=== PATIENT | male | born 1970 | race Caucasian/White ===

== ENCOUNTER → 2017-02-17 | Outpatient (CLI) | payer OTHER ==
[2017-02-17 19:31] LABS: ALB/GLOB RATIO 0.6 (0.9-2); ALKALINE PHOSPHATASE 91 U/L (45-117); ALT/SGPT 26 U/L (12-78); AST/SGOT 21 U/L (15-37); BLOOD UREA NITROGEN 19 mg/dl (7-18); BUN/CREATININE RATIO 18.8 (10-20); CALCIUM 9.5 mg/dl (8.5-10.1); CARBON DIOXIDE 26 mmol/L (21-32); CHLORIDE 98 mmol/L (98-107); CHOLESTEROL 199 mg/dl (0-200); GLUCOSE 352 mg/dl (70-99); HDL CHOLESTEROL 40 mg/dl; LDL CHOLESTEROL CALCULATED 104 mg/dl; POTASSIUM 3.8 mmol/L (3.5-5.1); SODIUM 133 mmol/L (136-145); TRIGLYCERIDES 273 mg/dl (0-150); VERY LOW DENSITY LIPOPROT CALC 55 mg/dl
[2017-02-17 19:42] LABS: BETA-HYDROXYBUTYRATE 1.38 mg/dL (0.2-2.81)
[2017-02-18 07:23] LABS: ESTIMATED AVERAGE GLUCOSE 286 mg/dl; HA1C FLAG Normal (Normal)
== END | disposition home or self-care (01) ==
LOC: C.LABPBG 15:28
PROVIDERS: ATTEND Family Medicine
DX: Z00.00 Encounter for general adult medical examination without abnormal findings (principal); E11.9 Type 2 diabetes mellitus without complications

== ENCOUNTER 2018-07-20 14:09 | Inpatient (IN) ==
[2018-07-20] MEDS ORDERED: SODIUM CHLORIDE 0.9% 1000ML 2,000 ML IV SCH (14:45)
[2018-07-20 14:58] LABS: Basophils # (auto) 0.05 K/uL (0-0.2); Basophils % (auto) 0.6 %; Eosinophils # (auto) 0.36 K/uL (0-0.5); Eosinophils % (auto) 4.5 %; Hematocrit (blood only) 44.4 % (42-52); Hemoglobin 14.3 g/dL (14.0-18.0); Immature Granulocytes # (auto) 0.04 K/uL (0.00-0.02); Immature Granulocytes % (auto) 0.5 %; Lymphocytes # (auto) 1.86 K/uL (1.2-3.4); Lymphocytes % (auto) 23.3 %; Mean Corpuscular Hgb Conc 32.2 g/dL (32-36); Mean Corpuscular Volume 74.5 fL (80-100); Mean Platelet Volume 10.5 fL (7.4-10.4); Monocytes # (auto) 0.59 K/uL (0.11-0.59); Monocytes % (auto) 7.4 %; Neutrophils # (auto) 5.09 K/uL (1.4-6.5); Neutrophils % (auto) 63.7 %; Platelet Count 230 K/uL (130-400); RDW Coefficient of Variation 15.7 % (11.5-14.5); RDW Standard Deviation 42.8 fL (36.4-46.3); Red Blood Count 5.96 M/uL (4.7-6.1); White Blood Count 7.99 K/uL (4.8-10.8)
[2018-07-20 15:17] LABS: Alanine Aminotransferase 25 U/L (12-78); Albumin Level 3.3 gm/dl (3.4-5.0); Aspartate Aminotransferase 35 U/L (15-37); BUN Creatinine Ratio 11.4 (10-20); Blood Urea Nitrogen 13 mg/dl (7-18); Calcium 9.2 mg/dl (8.5-10.1); Carbon Dioxide 27 mmol/L (21-32); Chloride 96 mmol/L (98-107); Est GFR (African American) 84.1; Est GFR (Non-African American) 72.5; Glucose 283 mg/dl (70-99); Potassium 3.6 mmol/L (3.5-5.1); Sodium 131 mmol/L (136-145)
[2018-07-20 15:27] LABS: Albumin Globulin Ratio 0.6 (0.9-2); Alkaline Phosphatase 90 U/L (45-117); Bilirubin,Total 0.5 mg/dl (0.2-1); Globulin 5.7 gm/dl (2.5-4.0); Troponin I < 0.015 ng/ml (0-0.045)
--- NOTE | 2018-07-20 15:39 | XRay Report ---
XR chest 1V portable CLINICAL HISTORY: cough COMPARISON STUDY: No previous studies for comparison. FINDINGS: The heart is borderline enlarged. There is no failure. There is no focal pulmonary consolid ation. There are no pleural effusions.[ IMPRESSION: No active disease in the chest. Electronically signed by: Gee Abudllahi M.D. 07/20/2018 3:38 PM
--- NOTE | 2018-07-20 15:40 | XRay Report ---
RIGHT GREAT TOE 4 VIEWS CLINICAL HISTORY: Nonhealing wound. Diabetic. Evaluate for osteomyelitis. COMPARISON: None. DISCUSSION: Degenerative changes are present the level of the metatarsal phalangeal joint and interph alangeal joint. No acute fractures are visualized. There is no conventional radiographic evidence of acute osteomyelitis. If this remains a strong clinical concern, it should be noted that MRI is more s ensitive for this diagnosis. IMPRESSION: 1. Mild degenerative change 2. No acute fractures 3. No conventional radiographic evidence of osteomyelitis Electronically signed by: Gee Abdullahi M.D. 07/20/2018 3:39 PM
[2018-07-20] MEDS ORDERED: VANCOMYCIN CONSULT ACTIVE PRN ×2 (15:50→17:13)
[2018-07-20] MEDS ORDERED: cefTRIAXone SODIUM 1,000 MG/50 ML BAG IV STA (15:50)
[2018-07-20] MEDS ORDERED: VANCOMYCIN HCL 2,750 MG in SODIUM CHLORIDE 0.9% 500 ML IV ONE (15:50)
--- NOTE | 2018-07-20 16:57 | Emergency Department Note ---
Entered by John Emery acting as a scribe for Van Roman DO History of Present Illness General Chief complaint: Infection, Wound Stated complaint: SENT FOR IV ANTIBIOTI,INFECTION IN BONE OF BIG TOE Source: patient Limitations: no limitations History of Present Illness Provider complaint: Right great toe infection Onset (ago): year(s) Location: foot (Right great toe) Pain Consistency: + other (no change in infection) Maximum Pain Intensity: 5 Quality: + other (Toe infection) Associated symptoms: + cough Treatments prior to arrival: other (Keflex ) The patient is a 48 year old male who presents to the Emergency Room from his primary care office after blood work from yesterday showed infection. The patient states that he has had an infection in the great toe on his right foot for the past 3 years. He saw his PCP yesterday who did blood work and told him that he had an infection "in my blood" today and referred him to the ED. She did start the patient on Keflex, which he took today. The patient denies any worsening/change to the wound and denies any recent fevers. He does add that he has had upper airway congestion and a cough for the past couple of weeks. The patient denies any other nausea, vomiting, diarrhea, or abdominal pain. Home Medications Home Medications Medication Instructions Recorded Confirmed Type canagliflozin [Invokana] 100 mg PO QPM 07/20/18 07/20/18 History fexofenadine-pseudoephedrine 1 tab PO Q12H PRN 07/20/18 07/20/18 History [Janee-D 12 Hour] hydrochlorothiazide 25 mg PO QPM 07/20/18 07/20/18 History losartan 100 mg PO QPM 07/20/18 07/20/18 History metformin 2,000 mg PO QPM 07/20/18 07/20/18 History sertraline 200 mg PO QPM 07/20/18 07/20/18 History sulfamethoxazole-trimethoprim 1 tab PO BID 07/20/18 07/20/18 History trazodone 100 mg PO HS PRN 07/20/18 07/20/18 History Allergies Allergy/AdvReac Type Severity Reaction Status Date / Time No Known Allergies Allergy Unverified 07/20/18 15:13 Past Med/Surg History Medical History HTN (hypertension) Toe infection Social History marital status: Current Living Situation: Spouse Feels Safe at Home: Yes Smoking Status: Never smoker Review of Systems See HPI for pertinent positives & negatives. and A total of 10 systems reviewed and were otherwise negative Physical Exam Vital Signs Vital Signs - 24 hr 07/20/18 14:13 07/20/18 15:13 07/20/18 15:30 Temperature 36.4 C L Temperature Source Oral Sepsis Recent Fever Within 48 Hours No Sepsis New/Unexplained Change in Mental Status No Sepsis Action Taken by Nursing No Action Required Pulse Rate 111 H 105 H Pulse Rate [Apical] 94 H Pulse Rhythm Regular Respiratory Rate 20 17 20 Respiratory Depth Normal Blood Pressure 198/81 H Blood Pressure [Right Arm] 148/96 H Blood Pressure Mean 120 Blood Pressure Mean [Right Arm] 113 Pulse Oximetry 92 94 94 Oxygen Delivery Method Room Air Room Air GENERAL: Sitting up in bed, alert, disheveled and diaphoretic. Chronically ill appearing. EYE EXAM: normal conjunctiva. OROPHARYNX: no exudate, no erythema, lips, buccal mucosa, and tongue normal and mucous membranes are moist NECK: supple, no nuchal rigidity, no adenopathy, non-tender LUNGS: Clear to auscultation. Normal chest wall mechanics HEART: Tachycardic. no murmurs, S1 normal and S2 normal ABDOMEN: abdomen soft, non-tender, normo-active bowel, sounds, no masses, no rebound or guarding. BACK: Back is symmetrical on inspection and there is no deformity, no midline tenderness, no CVA tenderness. SKIN: no rashes and no bruising UPPER EXTREMITIES: upper extremities are grossly normal. LOWER EXTREMITIES: No pitting edema. The right great toe has a 1x1 cm wound on the plantar surface, tracking down to the muscle. NEURO EXAM: Normal sensorium, cranial nerves II-XII grossly intact, normal speech, no gross weakness of arms, no gross weakness of legs. Course ED COURSE: Vital signs were reviewed and showed tachycardia, febrile, and hypertension. The patients medical record was reviewed The above diagnostic studies were performed and reviewed. ED treatments and interventions as stated above. 1433: The patient was evaluated in room B11B. A complete history and physical examination was performed. 1601: Upon reevaluation, the patient is resting in bed. I discussed my findings with the patient and he understands and agrees with the treatment plan. Based on the patients age, coexisting illnesses, exam and lab findings the decision to treat as an inpatient was made. The patient remained stable while under my care. The patient will be evaluated for further management. 1606: I reviewed the patient's case with Dr. Hawk [place] [facility] [place] He will evaluate the patient for further management. Administered Medications Vancomycin HCl 2,750 mg/ (Sodium Chloride) 555 mls @ 200 mls/hr IV NOW ONE Stop: 07/20/18 18:36 Last Admin: 07/20/18 16:18 Dose: 200 mls/hr Discontinued Medications Sodium Chloride (Nss 1000ml) 2,000 mls @ 999 mls/hr IV .Q2H1M ANUM Stop: 07/20/18 16:45 Last Infusion: 07/20/18 16:17 Dose: 0 mls/hr Admin: 07/20/18 15:12 Dose: 999 mls/hr Ceftriaxone Sodium (Rocephin) 1,000 mg in 50 mls @ 100 mls/hr IV NOW STA Stop: 07/20/18 16:19 Last Infusion: 07/20/18 16:18 Dose: 0 mls/hr Admin: 07/20/18 15:58 Dose: 100 mls/hr Medical Decision Making Differential Diagnosis Differential diagnosis: Etiologies such as sepsis, UTI, pneumonia, bacteremia, metabolic process, electrolyte abnormalities, cardiac sources, intracerebral event, intra- abdominal process, toxicological process, neurologic process, as well as others were entertained. Medical Records Attestation: I reviewed the patient's medical records. Home Medications Current Medication List: was personally reviewed by me Laboratory Data Attestation: I reviewed the patient's lab results. Result diagrams: 07/20/18 14:44 07/20/18 14:44 Lab Results 07/20/18 07/20/18 07/20/18 Range/Units 14:44 14:44 14:49 WBC 7.99 (4.8-10.8) K/uL RBC 5.96 (4.7-6.1) M/uL Hgb 14.3 (14.0-18.0) g/dL Hct 44.4 (42-52) % MCV 74.5 L (80-100) fL MCH 24.0 L (25-34) pg MCHC 32.2 (32-36) g/dL RDW Std Deviation 42.8 (36.4-46.3) fL RDW Coeff of Rafal 15.7 H (11.5-14.5) % Plt Count 230 (130-400) K/uL MPV 10.5 H (7.4-10.4) fL Immature Gran % (Auto) 0.5 % Neut % (Auto) 63.7 % Lymph % (Auto) 23.3 % [place] % (Auto) 7.4 % Eos % (Auto) 4.5 % Baso % (Auto) 0.6 % Immature Gran # (Auto) 0.04 H (0.00-0.02) K/uL Neut # (Auto) 5.09 (1.4-6.5) K/uL Lymph # (Auto) 1.86 (1.2-3.4) K/uL [place] # (Auto) 0.59 (0.11-0.59) K/uL Eos # (Auto) 0.36 (0-0.5) K/uL Baso # (Auto) 0.05 (0-0.2) K/uL Sodium 131 L (136-145) mmol/L Potassium 3.6 (3.5-5.1) mmol/L Chloride 96 L (98-107) mmol/L Carbon Dioxide 27 (21-32) mmol/L Anion Gap 8.0 (3-11) BUN 13 (7-18) mg/dl Creatinine 1.18 (0.6-1.4) mg/dl Est Cr Clr Drug Dosing Not Reportable Est GFR ( Amer) 84.1 Est GFR (Non-Af Amer) 72.5 BUN/Creatinine Ratio 11.4 (10-20) Glucose 283 H (70-99) mg/dl POC Lactic Acid Ash 2.66 H (0.90-1.70) mmol/L Calcium 9.2 (8.5-10.1) mg/dl Total Bilirubin 0.5 (0.2-1) mg/dl AST 35 (15-37) U/L ALT 25 (12-78) U/L Alkaline Phosphatase 90 (45-117) U/L Troponin I < 0.015 (0-0.045) ng/ml Total Protein 9.0 H (6.4-8.2) gm/dl Albumin 3.3 L (3.4-5.0) gm/dl Globulin 5.7 H (2.5-4.0) gm/dl Albumin/Globulin Ratio 0.6 L (0.9-2) TSH 1.710 (0.300-4.500) uIu/ml Imaging Data Attestation: I personally reviewed and interpreted this imaging study as follows : Radiologist's Impression: XR chest 1V portable CLINICAL HISTORY: cough COMPARISON STUDY: No previous studies for comparison. FINDINGS: The heart is borderline enlarged. There is no failure. There is no focal pulmonary consolidation. There are no pleural effusions.[ IMPRESSION: No active disease in the chest. Electronically signed by: Gee Abdullahi M.D. 07/20/2018 3:38 PM RIGHT GREAT TOE 4 VIEWS CLINICAL HISTORY: Nonhealing wound. Diabetic. Evaluate for osteomyelitis. COMPARISON: None. DISCUSSION: Degenerative changes are present the level of the metatarsal phalangeal joint and interphalangeal joint. No acute fractures are visualized. There is no conventional radiographic evidence of acute osteomyelitis. If this remains a strong clinical concern, it should be noted that MRI is more sensitive for this diagnosis. IMPRESSION: 1. Mild degenerative change 2. No acute fractures 3. No conventional radiographic evidence of osteomyelitis Electronically signed by: Gee Abdullahi M.D. 07/20/2018 3:39 PM Blood Pressure Blood Pressure Findings: Elevated blood pressure Blood Pressure Disposition: further management by hospitalist GHULAM Fonseca Patient is a 48-year-old male who presents the ER referred in by PCP for possible osteomyelitis of his right first toe. Patient was sent in for IV antibiotics and admission. Upon arrival patient is diaphoretic. He is afebrile but tachycardic. Labs were obtained CBC shows no significant leukocytosis or anemia. BMP with mild hyponatremia. Lactate was elevated at 2.7. PSG was elevated as well at 280. Troponin was negative. TSH was normal. Influenza was negative as this gentleman does have some upper respiratory symptoms. Chest x-ray was unremarkable as well as x-ray of the right first toe. Review of previous labs done yesterday and duplex shows no DVT in the elevated sed at 90. Patient was given IV vancomycin and Rocephin for possible osteo-although I not certain at this time. Lactate was elevated question infection versus secondary to metformin however with the tachycardia did favor infection. Patient was updated bedside. Given fluids and admitted to the hospitalist for further workup. Impression & Plan Ulcer of great toe, URI (upper respiratory infection), Elevated lactic acid level, Tachycardia Discharge Plan Visit Data Chief Complaint: Infection, Wound Stated Complaint: SENT FOR IV ANTIBIOTI,INFECTION IN BONE OF BIG TOE Other Complaint: Medication Request ED Provider: Van Roman Discharge Problem: Ulcer of great toe, URI (upper respiratory infection), Elevated lactic acid level, Tachycardia Patient Disposition: Being Evaluated by Hospitalist Forms Stand Alone Forms: My [facility] Prescriptions Prescriptions: No Action sertraline 100 mg tablet 200 mg PO QPM RF: 0 sulfamethoxazole-trimethoprim 800-160 mg tablet 1 tab PO BID RF: 0 trazodone 100 mg tablet 100 mg PO HS PRN (Reason: Sleep) RF: 0 metformin 1,000 mg tablet 2,000 mg PO QPM RF: 0 hydrochlorothiazide 25 mg tablet 25 mg PO QPM RF: 0 losartan 100 mg tablet 100 mg PO QPM RF: 0 fexofenadine-pseudoephedrine [Janee-D 12 Hour] 60-120 mg Tablet Extended Release 12 Hr 1 tab PO Q12H PRN (Reason: Cold Symptoms) RF: 0 canagliflozin [Invokana] 100 mg tablet 100 mg PO QPM RF: 0 Referrals Referrals: Alma Forrester DO [Primary Care Provider] - The scribe's documentation has been prepared under my direction and personally reviewed by me in its entirety. I confirm that the note above accurately reflects all work, treatment, procedures, and medical decision making performed by me.
[2018-07-20] MEDS ORDERED: POLYETHYLENE (MIRALAX) 17 GM PACK PO PRN (17:13)
[2018-07-20] MEDS ORDERED: TRAZODONE HCL 100 MG TAB PO PRN (17:13)
[2018-07-20] MEDS ORDERED: ACETAMINOPHEN 325 MG TAB PO PRN (17:13)
[2018-07-20] MEDS ORDERED: ONDANSETRON INJ 2 MG/ML 2 ML VIAL IV PRN (17:13)
--- NOTE | 2018-07-20 17:26 | History & Physical Report ---
Date of Service July 20, 2018 Assessment & Plan (1) Ulcer of great toe: will treat with Vanco and Rocephin for now follow up on wound culture plain film shows no osteomyelitis per patient has had ulcer for a year, getting worse MRI foot: no osteomyelitis no available inpatient podiatry consults until Wednesday will need follow up regularly with podiatry, should refer on discharge he has several areas of cracked skin that will need followed ESR elevated as outpatient, likely due to the chronicity of the wound can repeat as outpatient (2) Cellulitis of leg, right: certainly set up for cellulitis due to skin ulcer has had several bouts of cellulitis this past year, all resolved with PO antibiotics cover with Rocephin and Vancomycin elevated WBC and febrile at home, chills and sweats (3) URI (upper respiratory infection): battling a viral URI for past few weeks (4) Tachycardia: due to fever and infection (5) DM type 2 (diabetes mellitus, type 2): poorly controlled on Metformin and Invokana as outpatient he does not follow a diet, does not check sugars has neuropathy, does not get regular foot exams will start Lantus 30 units qAM while admitted, should take Lantus on discharge as well use Novolog while admitted consult school vocational educator (6) HTN (hypertension): continue Losartain hold HCTZ for time being due to acute infection (7) DVT prophylaxis: Heparin SC History of Present Illness Chief Complaint: My toe is infected Primary Care Provider: Alma Forrester, DO 48 yo male with poorly controlled DM type II complicated by peripheral neuropathy, presents to the ED due to ulcer on right great toe. Patient says that the ulcer has been there for one year. He said it started out as a small opening but has gotten deeper. He has had several bouts of cellulitis of the right leg in the past year all which resolved with PO antibiotics. He does not follow with wound clinic. He soak the toe in Epson salts daily. He does not have any pain in toe or other areas of his feet due to neuropathy. He went to see his PCP today due to fevers, rigors and chills at home. He then broke out in sweats and soaked the sheets. His right leg was erythematous yesterday and warm. He was prescribed Bactrim but did not start taking it yet. He has not noticed any drainage from the toe recently except for some occasional bleeding. He has never seen a mortgage closer. He was diagnosed with DM 4 years ago. He is compliant with Metformin and Invokana but does not really follow a diabetic diet. He does not get foot exams or eye exams. His HbA1c was 11.6 at most recent check. He does not check his sugars at home. Family history significant for CAD in both his father and grandfather. His father from [place] when he was 56. He thinks his grandfather was also in his 50's when he . He had a stress test many years ago. Says that he does not get chest pain when exerting himself, but admits that he does not exert himself that often. Currently unemployed. He has no smoking history. Never abused alcohol or drugs. Allergies Allergy/AdvReac Type Severity Reaction Status Date / Time No Known Allergies Allergy Unverified 07/20/18 15:13 Home Medications Home Medications Medication Instructions Recorded Confirmed Type canagliflozin [Invokana] 100 mg PO QPM 07/20/18 07/20/18 History fexofenadine-pseudoephedrine 1 tab PO Q12H PRN 07/20/18 07/20/18 History [Janee-D 12 Hour] hydrochlorothiazide 25 mg PO QPM 07/20/18 07/20/18 History losartan 100 mg PO QPM 07/20/18 07/20/18 History metformin 2,000 mg PO QPM 07/20/18 07/20/18 History sertraline 200 mg PO QPM 07/20/18 07/20/18 History sulfamethoxazole-trimethoprim 1 tab PO BID 07/20/18 07/20/18 History trazodone 100 mg PO HS PRN 07/20/18 07/20/18 History Past Med/Surg History Medical History HTN (hypertension) Toe infection Social History marital status: Current Living Situation: Spouse Feels Safe at Home: Yes Safety Concerns: Feels Safe At This Time Smoking Status: Former smoker Do You Dip or Chew Tobacco: No Smoking End Date: quit about 20 years ago Second Hand Exposure: No Hx Alcohol Use: No Hx Substance Use: No Beliefs That Will Affect Care: None Preferred Language: Japanese Communication Ability: Effective Livestock Trucker Required: No Review of Systems All systems reviewed & are unremarkable except as noted in HPI & below Physical Exam 2 Vital Signs (Past 24 Hours): Last Vital Signs Temp 36.4 C L 07/20/18 14:13 Pulse 96 H 07/20/18 16:49 Resp 18 07/20/18 16:49 BP 133/93 07/20/18 16:49 Pulse Ox 93 07/20/18 16:49 Constitutional: WD/WN, vitals as above + ill appearing and + obese; no acute distress Eyes: PERRL, conjunctivae normal, anicteric sclerae ENMT: external ear and nose normal, oropharynx normal Neck: trachea midline, no thyromegaly Respiratory: normal respiratory effort, lungs clear to auscultation Cardiovascular: RRR, no murmur, no edema Gastrointestinal (Abdomen): normal bowel sounds, soft, nontender, no hepatosplenomegaly Musculoskeletal: no cyanosis or clubbing, extremities motor strength 5/5 Skin: + rash (erythema from ankle to knee on right side, hot to palpation, slightly tender) and + ulcer (plantar surface of right great toe, 1 x 1 cm opening, fat exposed, no purulent drainage or blood seen) multiple cracked areas on feet with some dry blood, bilaterally Neurologic: PERRL, EOMI, accommodation nl, no face palsy, no dysarthria CN' s II-XI intact bilaterally; + abnormal touch/pain/proprioception (decreased sensation in feet) Psychiatric: A+Ox3, euthymic affect Lymphatic: no cervical or axillary lymphadenopathy Results & Data Laboratory Results Laboratory Results - last 24 hr 07/20/18 07/20/18 07/20/18 14:44 14:44 14:44 WBC 7.99 RBC 5.96 Hgb 14.3 Hct 44.4 MCV 74.5 L MCH 24.0 L MCHC 32.2 RDW Std Deviation 42.8 RDW Coeff of Rafal 15.7 H Plt Count 230 MPV 10.5 H Immature Gran % (Auto) 0.5 Neut % (Auto) 63.7 Lymph % (Auto) 23.3 [place] % (Auto) 7.4 Eos % (Auto) 4.5 Baso % (Auto) 0.6 Immature Gran # (Auto) 0.04 H Neut # (Auto) 5.09 Lymph # (Auto) 1.86 [place] # (Auto) 0.59 Eos # (Auto) 0.36 Baso # (Auto) 0.05 PT 10.7 INR 1.1 APTT 28.7 PTT Ratio 1.1 Sodium 131 L Potassium 3.6 Chloride 96 L Carbon Dioxide 27 Anion Gap 8.0 BUN 13 Creatinine 1.18 Est Cr Clr Drug Dosing Not Reportable Est GFR ( Amer) 84.1 Est GFR (Non-Af Amer) 72.5 BUN/Creatinine Ratio 11.4 Glucose 283 H POC Glucose POC Lactic Acid Ash Calcium 9.2 Total Bilirubin 0.5 AST 35 ALT 25 Alkaline Phosphatase 90 Troponin I < 0.015 Total Protein 9.0 H Albumin 3.3 L Globulin 5.7 H Albumin/Globulin Ratio 0.6 L TSH 1.710 Urine Color Urine Appearance Urine pH Ur Specific [place] Urine Protein Urine Glucose (UA) Urine Ketones Urine Blood Urine Nitrite Urine Bilirubin Urine Urobilinogen Ur Leukocyte Esterase Influenza Type A Ag Influenza Type B Ag 07/20/18 07/20/18 07/20/18 14:49 16:20 17:40 WBC RBC Hgb Hct MCV MCH MCHC RDW Std Deviation RDW Coeff of Rafal Plt Count MPV Immature Gran % (Auto) Neut % (Auto) Lymph % (Auto) [place] % (Auto) Eos % (Auto) Baso % (Auto) Immature Gran # (Auto) Neut # (Auto) Lymph # (Auto) [place] # (Auto) Eos # (Auto) Baso # (Auto) PT INR APTT PTT Ratio Sodium Potassium Chloride Carbon Dioxide Anion Gap BUN Creatinine Est Cr Clr Drug Dosing Est GFR ( Amer) Est GFR (Non-Af Amer) BUN/Creatinine Ratio Glucose POC Glucose POC Lactic Acid Ash 2.66 H Calcium Total Bilirubin AST ALT Alkaline Phosphatase Troponin I Total Protein Albumin Globulin Albumin/Globulin Ratio TSH Urine Color Yellow Urine Appearance Clear Urine pH 5.5 Ur Specific [place] > 1.045 H Urine Protein Negative Urine Glucose (UA) 3+ H Urine Ketones Negative Urine Blood Negative Urine Nitrite Negative Urine Bilirubin Negative Urine Urobilinogen Negative Ur Leukocyte Esterase Negative Influenza Type A Ag Neg for Influ A Influenza Type B Ag Neg for Influ B 07/20/18 07/20/18 17:52 20:45 WBC RBC Hgb Hct MCV MCH MCHC RDW Std Deviation RDW Coeff of Rafal Plt Count MPV Immature Gran % (Auto) Neut % (Auto) Lymph % (Auto) [place] % (Auto) Eos % (Auto) Baso % (Auto) Immature Gran # (Auto) Neut # (Auto) Lymph # (Auto) [place] # (Auto) Eos # (Auto) Baso # (Auto) PT INR APTT PTT Ratio Sodium Potassium Chloride Carbon Dioxide Anion Gap BUN Creatinine Est Cr Clr Drug Dosing Est GFR ( Amer) Est GFR (Non-Af Amer) BUN/Creatinine Ratio Glucose POC Glucose 255 H 234 H POC Lactic Acid Ash Calcium Total Bilirubin AST ALT Alkaline Phosphatase Troponin I Total Protein Albumin Globulin Albumin/Globulin Ratio TSH Urine Color Urine Appearance Urine pH Ur Specific [place] Urine Protein Urine Glucose (UA) Urine Ketones Urine Blood Urine Nitrite Urine Bilirubin Urine Urobilinogen Ur Leukocyte Esterase Influenza Type A Ag Influenza Type B Ag Diagnostic Findings MRI foot, right IMPRESSION: 1. No evidence for osteomyelitis. 2. Generalized degenerative change throughout all major articular surfaces. 3. Chronic granulation type tissue adjacent to the distal aspects of the first and fifth metatarsals. 4. No evidence for drainable abscess or collection. 5. Trace amount of subcutaneous fluid adjacent to the distal fifth metatarsal. 6. Moderate dorsal subcutaneous fat cellulitis. Medications Administered Current Inpatient Medications Acetaminophen (Tylenol) 650 mg PO Q4H PRN PRN Reason: pain/fever Stop: 08/19/18 17:12 Gadobutrol (Gadavist 65ml) 14 ml IV ONCE PRN PRN Reason: Interaction Checking Stop: 07/24/18 20:38 Last Admin: 07/20/18 20:39 Dose: 14 ml Heparin Sodium (Porcine) (Heparin Sodium (Porcine)) 5,000 units SQ Q8 ANUM Stop: 08/19/18 21:59 Last Admin: 07/20/18 21:10 Dose: 5,000 units Hydrochlorothiazide (Hctz) 25 mg PO QPM ANUM Stop: 08/19/18 20:59 Last Admin: 07/20/18 21:05 Dose: 25 mg Ceftriaxone Sodium 2,000 mg/ (Dextrose) 70 mls @ 100 mls/hr IV DAILY@1500 ANUM; Protocol Stop: 07/29/18 15:41 Vancomycin HCl 2,000 mg/ (Sodium Chloride) 540 mls @ 200 mls/hr IV Q10H [facility] Stop: 07/31/18 00:00 Insulin Aspart (Novolog Flexpen) 0 units SC ACHS [facility] Stop: 08/19/18 17:29 Last Admin: 07/20/18 21:06 Dose: 3 units Insulin Glargine (Lantus Solostar Pen) 30 units SC QAM [facility] Stop: 08/20/18 08:59 Losartan Potassium (Cozaar) 100 mg PO QPM [facility] Stop: 08/19/18 20:59 Last Admin: 07/20/18 21:05 Dose: 100 mg Miscellaneous Information (Consult) 1 ea N/A UD PRN PRN Reason: Consult Stop: 08/19/18 17:12 Ondansetron HCl (Zofran) 4 mg IV Q6H PRN PRN Reason: Nausea Stop: 08/19/18 17:12 Polyethylene Glycol (Miralax Powder Packet) 17 gm PO DAILY PRN PRN Reason: Constipation Stop: 08/19/18 17:12 Sertraline HCl (Zoloft) 200 mg PO QPM [facility] Stop: 08/19/18 20:59 Last Admin: 07/20/18 21:05 Dose: 200 mg Trazodone HCl (Desyrel) 100 mg PO HS PRN PRN Reason: Sleep Stop: 08/19/18 17:12 Code Status & VTE Plan Code Status full code _ (1) URI (upper respiratory infection) Airway obstruction: Pharyngitis/tonsillitis etiology: Streptococcal tonsillitis recurrence: URI type: unspecified URI Qualified Code(s): J06.9 - Acute upper respiratory infection, unspecified (2) Ulcer of great toe Laterality: right Non-pressure ulcer stage: unspecified non-pressure ulcer stage Qualified Code(s): L97.519 - Non-pressure chronic ulcer of other part of right foot with unspecified severity
[2018-07-20] MEDS ORDERED: PATIENT'S HEIGHT AND/OR WEIGHT NEEDED SCH (17:30)
[2018-07-20 17:57] LABS: Appearance Urine Clear (Clear); Bilirubin Urine Negative (Negative); Color Urine Yellow; Glucose Urine UA 3+ (Negative); Ketones Urine Negative (Negative); Leukocyte Esterase Urine Negative (Negative); Nitrite Urine Negative (Negative); Protein Urine Negative (Negative); Specific Gravity Urine > 1.045 (1.000-1.030); Urobilinogen Urine Negative (Negative); pH Urine 5.5 (4.5-7.5)
[2018-07-20] MEDS ORDERED: cefTRIAXone SODIUM 1,000 MG in DEXTROSE 5% 50 ML IV ONE (18:00)
--- NOTE | 2018-07-20 18:10 | Pharmacy Report ---
Pharmacy Abx Initial Consult - Date of Service July 20, 2018 - Pharmacy Dosing Scope Date of Consult: 07/20/18 Consultation requested by: Dr. Hawk Pharmacy is consulted to initiate vancomycin IV dosing therapy, order appropriate labs and adjust drug dose/frequency. - Subjective The patient is a 48 year old M admitted on 07/20/18 16:23 with a chronic diabetic ulcer. - Objective Height: 6 ft 1 in Weight: 146.4 kg Vital Signs (Past 12hrs): Vital Signs Temp Pulse Pulse Resp BP BP Pulse Ox 07/20/18 16:49 96 H 18 133/93 93 07/20/18 15:30 94 H 20 148/96 H 94 07/20/18 15:13 105 H 17 94 07/20/18 14:13 36.4 C L 111 H 20 198/81 H 92 Lab Results (24hrs): Laboratory Tests (24 Hours) 07/20/18 07/20/18 14:44 14:44 WBC 7.99 Neut # (Auto) 5.09 Creatinine 1.18 Est Cr Clr Drug Dosing Not Reportable - Risk Factors for Resistance * has had multiple PO antibiotics for toe ulcers - Assessment & Plan Assessment 48 year old M admitted with worsening toe ulcer Plan vancomycin for treatment of diabetic foot infection Vancomycin IV * Estimated PK Parameters: Vd 0.6 L/kg, Juice 0.087 hr-1, t1/2 7.9 hr * Loading dose: 2750 mg (18 mg/kg) * Maintenance dose: 2000 mg IV (13.5 mg/kg) every 10 hours- start two hours early since inadequate load given. * Goal trough level for diabetic foot infection with previous antibiotic use : 15 to 20 mcg/mL * Trough ordered for 07/22/18 * A less than traditional dose has been selected due to likelihood of drug accumulation in obese patient. Pharmacy will continue to follow and will adjust dose/frequency as necessary. Thank you.
[2018-07-20 18:21] LABS: INR 1.1 (0.9-1.1); Partial Thromboplastin Ratio 1.1; Partial Thromboplastin Time 28.7 Seconds (21.0-31.0); Prothrombin Time 10.7 Seconds (9.0-12.0)
[2018-07-20] MEDS ORDERED: GADOBUTROL 65ML VIAL IV PRN (20:39)
[2018-07-20] MEDS ORDERED: LOSARTAN POTASSIUM 50 MG TAB PO SCH (21:00)
[2018-07-20] MEDS: INSULIN ASPART 100 UNITS/ML 3 ML PEN SC SCH ×2 (21:02→21:06)
[2018-07-20] MEDS: hydroCHLOROthiazide 25 MG TAB PO SCH (21:05)
[2018-07-20] MEDS: SERTRALINE HCL 100 MG TABLET PO SCH (21:05)
[2018-07-20] MEDS: HEPARIN SOD 5,000 UNIT/0.5 ML VIAL SQ SCH (21:10)
--- NOTE | 2018-07-20 21:44 | Magnetic Resonance Report ---
Study: MRI right foot HISTORY: Infection. FINDINGS: Moderate degenerative change throughout all major articular services. Signal characteristic s of the bony structures are unremarkable. No evidence for bone marrow replacing process. Mild granulation tissue within the subcutaneous fat adjacent to the plantar surface distal aspect fir st metatarsal.. This has a trace amount of associated fluid. No evidence for drainable abscess or col lection. Findings of moderate soft tissue cellulitis dorsal to the metatarsals. No evidence for bone marrow re placing process. Mild soft tissue localized increase in signal. Additional granulation tissue adjacent to the first metatarsophalangeal joint. No evidence for abnorm al signal characteristics of the brain the degenerative change present. IMPRESSION: 1. No evidence for osteomyelitis. 2. Generalized degenerative change throughout all major articular surfaces. 3. Chronic granulation type tissue adjacent to the distal aspects of the first and fifth metatarsals. 4. No evidence for drainable abscess or collection. 5. Trace amount of subcutaneous fluid adjacent to the distal fifth metatarsal. 6. Moderate dorsal subcutaneous fat cellulitis. Electronically signed by: Kameron iJ M.D. 07/20/2018 9:43 PM
[2018-07-21] MEDS: VANCOMYCIN HCL 2,000 MG in SODIUM CHLORIDE 0.9% 500 ML IV SCH ×3 (00:11→20:56)
[2018-07-21] MEDS ORDERED: INFLUENZA ADMINISTRATION CHARGE ONE (04:30)
[2018-07-21] MEDS ORDERED: INFLUENZA VIRUS QUAD VACCINE 0.5 ML SYR IM ONE (04:30)
[2018-07-21] MEDS ORDERED: PNEUMOCOCCAL POLYSACCHARIDES 25 MCG/0.5 ML VIAL/SYR IM ONE (04:30)
[2018-07-21] MEDS ORDERED: PNEUMOCOCCAL ADMINISTRATION CHARGE ONE (04:30)
[2018-07-21] MEDS: HEPARIN SOD 5,000 UNIT/0.5 ML VIAL SQ SCH ×3 (05:27→21:07)
[2018-07-21 06:01] LABS: Basophils # (auto) 0.03 K/uL (0-0.2); Basophils % (auto) 0.5 %; Eosinophils # (auto) 0.38 K/uL (0-0.5); Hematocrit (blood only) 42.3 % (42-52); Hemoglobin 13.4 g/dL (14.0-18.0); Immature Granulocytes # (auto) 0.03 K/uL (0.00-0.02); Immature Granulocytes % (auto) 0.5 %; Lymphocytes # (auto) 1.69 K/uL (1.2-3.4); Lymphocytes % (auto) 26.5 %; Mean Corpuscular Hgb Conc 31.7 g/dL (32-36); Mean Corpuscular Volume 75.3 fL (80-100); Mean Platelet Volume 10.7 fL (7.4-10.4); Monocytes # (auto) 0.47 K/uL (0.11-0.59); Monocytes % (auto) 7.4 %; Neutrophils # (auto) 3.78 K/uL (1.4-6.5); Neutrophils % (auto) 59.1 %; Platelet Count 187 K/uL (130-400); RDW Coefficient of Variation 15.8 % (11.5-14.5); Red Blood Count 5.62 M/uL (4.7-6.1); White Blood Count 6.38 K/uL (4.8-10.8)
[2018-07-21 06:17] LABS: BUN Creatinine Ratio 18.9 (10-20); Calcium 8.8 mg/dl (8.5-10.1); Creatinine Clr Calc Pharmacy 212.6 ml/min; Est GFR (African American) 134.2; Est GFR (Non-African American) 115.8; Potassium 4.1 mmol/L (3.5-5.1)
[2018-07-21] MEDS: INSULIN ASPART 100 UNITS/ML 3 ML PEN SC SCH ×4 (08:34→21:02)
[2018-07-21] MEDS: INSULIN GLARGINE SOLOSTAR 100 UNITS/ML 3 ML PEN SC SCH (08:37)
[2018-07-21] MEDS: cefTRIAXone SODIUM 2,000 MG in DEXTROSE 5% 50 ML IV SCH (14:31)
--- NOTE | 2018-07-21 16:42 | Hospitalist Progress Note ---
Date of Service July 21, 2018 Assessment & Plan (1) Ulcer of great toe: (2) Cellulitis of leg, right: (3) URI (upper respiratory infection): (4) Tachycardia: (5) DM type 2 (diabetes mellitus, type 2): (6) HTN (hypertension): (7) DVT prophylaxis: 48 yo male with poorly controlled DM type II complicated by peripheral neuropathy admitted on July 20, 2018 due to ulcer on right great toe. Ulcer of great toe associated with cellulitis in the right lower foot : MRI has no osteomyelitis, Continue treat with Vanco and Rocephin for now follow up on wound culture plain film shows no osteomyelitis upper respiratory infection, battling a viral URI for past few weeks Tachycardia: due to fever and infection, resolved poorly controlled type II diabetic, on Metformin and Invokana as outpatient does not follow a diet, does not check sugars, does not get regular foot exams Continue Lantus 30 units qAM while admitted, should take Lantus on discharge as well, will plan [place] Talked to patient again with life educator, need to follow-up with PCP in 7- 10 days, Uncontrolled HTN , especially patient has diabetic need to more stricter target systolic blood pressure and diastolic blood pressure at 130/70, continue Losartain, HCTZ, and at amlodipine 5 mg p.o. daily Heparin for DVT prophylaxis Planning to discharge tomorrow Subjective Generally doing okay, right foot ulceration has been 2 years, which seems getting worse, Denies obvious pain, Review of Systems Constitutional: Positive weakness, or fatigue Respiratory: no cough, sputum, wheezing, or dyspnea on exertion Cardiac: No chest pain, No orthopnea, No PND, No claudication, No palpitations , Abdomen: No pain, No nausea, No vomiting, No diarrhea, No constipation, No GI bleeding Musculoskeletal: No joint pain, No muscle pain, No swelling, No calf pain, No problem reported : No dysuria, No urinary frequency, No incontinence, No hematuria Neurologic: No paralysis, No weakness, No numbness/tingling, No vertigo, No balance problems Psychiatric: No depression symptoms, No anhedonism, No anxiety, No insomnia, No substance abuse Heme: No abnormal bleeding/bruising, No clotting problems, No swollen lymph nodes, No night sweats Skin: See HPI , no itch, No new/changing skin lesions, No color change, No bleeding Physical Exam 2 Vital Signs (Past 24 Hours): Last Vital Signs Temp 36.7 C 07/21/18 15:25 Pulse 91 H 07/21/18 15:25 Resp 18 07/21/18 15:25 BP 148/89 H 07/21/18 15:25 Pulse Ox 94 07/21/18 15:25 Physical Exam: General Appearance: WD/WN, no apparent distress, Eyes: normal inspection, PERRL, EOMI, sclerae normal ENT: normal ENT inspection, hearing grossly normal, pharynx normal Neck: supple, no adenopathy, thyroid normal, no JVD, no carotid bruits, trachea midline Respiratory/Chest: chest non-tender, normal breath sounds, no respiratory distress, no accessory muscle use, breath sounds, rales, wheezing Cardiovascular: regular rate, rhythm, no JVD, no murmur Abdomen: normal bowel sounds, non tender, soft, no organomegaly, Extremities: normal range of motion, non-tender, normal inspection, no pedal edema, no calf tenderness, normal capillary refill , pelvis stable, joint has no limited range of motion, capillary refill is normal, no cyanosis clubbing Neurologic/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, no motor/sensory deficits, alert, normal mood/affect, oriented x 3 Skin: + minimal rash/ erythema from ankle to knee on right side, mild hot to palpation, non tender, ulcer plantar surface of right great toe, 1 x 1 cm opening, no purulent drainage or blood seen multiple cracked areas on feet with some dry blood, bilaterallynormal color, warm/dry, no rash Lymphatic: no adenopathy Results & Data Laboratory Results Laboratory Results - last 24 hr 07/20/18 07/20/18 07/20/18 14:44 16:20 17:40 WBC RBC Hgb Hct MCV MCH MCHC RDW Std Deviation RDW Coeff of Rafal Plt Count MPV Immature Gran % (Auto) Neut % (Auto) Lymph % (Auto) Boundary % (Auto) Eos % (Auto) Baso % (Auto) Immature Gran # (Auto) Neut # (Auto) Lymph # (Auto) Boundary # (Auto) Eos # (Auto) Baso # (Auto) PT 10.7 INR 1.1 APTT 28.7 PTT Ratio 1.1 Sodium Potassium Chloride Carbon Dioxide Anion Gap BUN Creatinine Est Cr Clr Drug Dosing Est GFR ( Amer) Est GFR (Non-Af Amer) BUN/Creatinine Ratio Glucose POC Glucose Calcium Urine Color Yellow Urine Appearance Clear Urine pH 5.5 Ur Specific [place] > 1.045 H Urine Protein Negative Urine Glucose (UA) 3+ H Urine Ketones Negative Urine Blood Negative Urine Nitrite Negative Urine Bilirubin Negative Urine Urobilinogen Negative Ur Leukocyte Esterase Negative Influenza Type A Ag Neg for Influ A Influenza Type B Ag Neg for Influ B 07/20/18 07/20/18 07/21/18 17:52 20:45 05:28 WBC 6.38 RBC 5.62 Hgb 13.4 L Hct 42.3 MCV 75.3 L MCH 23.8 L MCHC 31.7 L RDW Std Deviation 43.0 RDW Coeff of Rafal 15.8 H Plt Count 187 MPV 10.7 H Immature Gran % (Auto) 0.5 Neut % (Auto) 59.1 Lymph % (Auto) 26.5 Boundary % (Auto) 7.4 Eos % (Auto) 6.0 Baso % (Auto) 0.5 Immature Gran # (Auto) 0.03 H Neut # (Auto) 3.78 Lymph # (Auto) 1.69 Boundary # (Auto) 0.47 Eos # (Auto) 0.38 Baso # (Auto) 0.03 PT INR APTT PTT Ratio Sodium Potassium Chloride Carbon Dioxide Anion Gap BUN Creatinine Est Cr Clr Drug Dosing Est GFR ( Amer) Est GFR (Non-Af Amer) BUN/Creatinine Ratio Glucose POC Glucose 255 H 234 H Calcium Urine Color Urine Appearance Urine pH Ur Specific [place] Urine Protein Urine Glucose (UA) Urine Ketones Urine Blood Urine Nitrite Urine Bilirubin Urine Urobilinogen Ur Leukocyte Esterase Influenza Type A Ag Influenza Type B Ag 07/21/18 07/21/18 07/21/18 05:28 08:02 11:57 WBC RBC Hgb Hct MCV MCH MCHC RDW Std Deviation RDW Coeff of Rafal Plt Count MPV Immature Gran % (Auto) Neut % (Auto) Lymph % (Auto) Boundary % (Auto) Eos % (Auto) Baso % (Auto) Immature Gran # (Auto) Neut # (Auto) Lymph # (Auto) Boundary # (Auto) Eos # (Auto) Baso # (Auto) PT INR APTT PTT Ratio Sodium 138 D Potassium 4.1 Chloride 103 Carbon Dioxide 32 Anion Gap 3.0 BUN 12 Creatinine 0.64 D Est Cr Clr Drug Dosing 212.6 Est GFR ( Amer) 134.2 Est GFR (Non-Af Amer) 115.8 BUN/Creatinine Ratio 18.9 Glucose 185 H POC Glucose 164 H 195 H Calcium 8.8 Urine Color Urine Appearance Urine pH Ur Specific [place] Urine Protein Urine Glucose (UA) Urine Ketones Urine Blood Urine Nitrite Urine Bilirubin Urine Urobilinogen Ur Leukocyte Esterase Influenza Type A Ag Influenza Type B Ag _ (1) URI (upper respiratory infection) Airway obstruction: Pharyngitis/tonsillitis etiology: Streptococcal tonsillitis recurrence: URI type: unspecified URI Qualified Code(s): J06.9 - Acute upper respiratory infection, unspecified (2) Ulcer of great toe Laterality: right Non-pressure ulcer stage: unspecified non-pressure ulcer stage Qualified Code(s): L97.519 - Non-pressure chronic ulcer of other part of right foot with unspecified severity
[2018-07-21] MEDS: AMLODIPINE BESYLATE 5 MG TAB PO SCH (18:35)
[2018-07-21] MEDS ORDERED: VANCOMYCIN TROUGH ONE ×2 (19:30)
[2018-07-21] MEDS: SERTRALINE HCL 100 MG TABLET PO SCH (20:31)
[2018-07-21] MEDS: hydroCHLOROthiazide 25 MG TAB PO SCH (20:32)
[2018-07-21] MEDS ORDERED: LOSARTAN POTASSIUM 50 MG TAB PO SCH (21:00)
--- NOTE | 2018-07-21 21:50 | Pharmacy Report ---
Pharmacy Abx Dose Short Note - Date of Service July 21, 2018 - Assessment & Plan Assessment 48 year old M receiving vancomycin for treatment of R foot ulcer Day # 2 of antimicrobial therapy. Plan Vancomycin * Trough level of 15.1 mcg/mL is therapeutic * Continue dose of 2000 mg IV every 10 hours (expect accumulation in obese patient) * Goal trough level for cellulitis : ~15 mcg/mL Pharmacy will continue to follow and will adjust dose/frequency as necessary. Thank you.
[2018-07-22] MEDS ORDERED: VANCOMYCIN TROUGH ONE ×2 (05:30→15:30)
[2018-07-22] MEDS: HEPARIN SOD 5,000 UNIT/0.5 ML VIAL SQ SCH ×2 (05:37→14:19)
[2018-07-22] MEDS: VANCOMYCIN HCL 2,000 MG in SODIUM CHLORIDE 0.9% 500 ML IV SCH ×2 (05:40→15:59)
[2018-07-22] MEDS: INSULIN ASPART 100 UNITS/ML 3 ML PEN SC SCH ×3 (08:53→18:05)
[2018-07-22] MEDS: INSULIN GLARGINE SOLOSTAR 100 UNITS/ML 3 ML PEN SC SCH (08:53)
[2018-07-22] MEDS: AMLODIPINE BESYLATE 5 MG TAB PO SCH (08:55)
[2018-07-22 10:19] LABS: Creatinine Clr Calc Pharmacy 219.5 ml/min; Est GFR (Non-African American) 117.3
[2018-07-22] MEDS: cefTRIAXone SODIUM 2,000 MG in DEXTROSE 5% 50 ML IV SCH (14:15)
--- NOTE | 2018-07-22 17:33 | Discharge Summary ---
Date of Service July 22, 2018 Admission HPI Per Admitting Provider 48 yo male with poorly controlled DM type II complicated by peripheral neuropathy, presents to the ED due to ulcer on right great toe. Patient says that the ulcer has been there for one year. He said it started out as a small opening but has gotten deeper. He has had several bouts of cellulitis of the right leg in the past year all which resolved with PO antibiotics. He does not follow with wound clinic. He soak the toe in Epson salts daily. He does not have any pain in toe or other areas of his feet due to neuropathy. He went to see his PCP today due to fevers, rigors and chills at home. He then broke out in sweats and soaked the sheets. His right leg was erythematous yesterday and warm. He was prescribed Bactrim but did not start taking it yet. He has not noticed any drainage from the toe recently except for some occasional bleeding. He has never seen a egg gatherer. He was diagnosed with DM 4 years ago. He is compliant with Metformin and Invokana but does not really follow a diabetic diet. He does not get foot exams or eye exams. His HbA1c was 11.6 at most recent check. He does not check his sugars at home. Family history significant for CAD in both his father and grandfather. His father from [place] when he was 56. He thinks his grandfather was also in his 50's when he . He had a stress test many years ago. Says that he does not get chest pain when exerting himself, but admits that he does not exert himself that often. Currently unemployed. He has no smoking history. Never abused alcohol or drugs. Subjective upon discharge No complain no fever and chill, no local drainages or erythema or skin rash Generally doing okay, right foot ulceration has been dry, Denies obvious pain, Review of Systems upon discharge Constitutional: Positive weakness, or fatigue Respiratory: no cough, sputum, wheezing, or dyspnea on exertion Cardiac: No chest pain, No orthopnea, No PND, No claudication, No palpitations , Abdomen: No pain, No nausea, No vomiting, No diarrhea, No constipation, No GI bleeding Musculoskeletal: No joint pain, No muscle pain, No swelling, No calf pain, No problem reported : No dysuria, No urinary frequency, No incontinence, No hematuria Neurologic: No paralysis, No weakness, No numbness/tingling, No vertigo, No balance problems Psychiatric: No depression symptoms, No anhedonism, No anxiety, No insomnia, No substance abuse Heme: No abnormal bleeding/bruising, No clotting problems, No swollen lymph nodes, No night sweats Skin: See HPI , no itch, No new/changing skin lesions, No color change, No bleeding Physical Exam upon discharge General Appearance: WD/WN, no apparent distress, Eyes: normal inspection, PERRL, EOMI, sclerae normal ENT: normal ENT inspection, hearing grossly normal, pharynx normal Neck: supple, no adenopathy, thyroid normal, no JVD, no carotid bruits, trachea midline Respiratory/Chest: chest non-tender, normal breath sounds, no respiratory distress, no accessory muscle use, breath sounds, rales, wheezing Cardiovascular: regular rate, rhythm, no JVD, no murmur Abdomen: normal bowel sounds, non tender, soft, no organomegaly, Extremities: normal range of motion, non-tender, normal inspection, no pedal edema, no calf tenderness, normal capillary refill , pelvis stable, joint has no limited range of motion, capillary refill is normal, no cyanosis clubbing 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, no motor/sensory deficits, alert, normal mood/affect, oriented x 3 Skin: + minimal rash/ erythema from ankle to knee on right side, mild hot to palpation, non tender, ulcer plantar surface of right great toe, 1 x 1 cm opening, no purulent drainage or blood seen multiple cracked areas on feet with some dry blood, bilaterallynormal color, warm/dry, no rash Lymphatic: no adenopathy Principal Diagnosis no Discharge Data Allergies Allergy/AdvReac Type Severity Reaction Status Date / Time No Known Allergies Allergy Unverified 07/20/18 15:13 Consultations 07/20/18 16:08 ED Decision to Admit Stat 07/20/18 17:13 Consult Case Management - Discharge Planning Routine Ordered Studies 07/20/18 17:13 MR foot RT wo/w con Routine Hospital Course (1) Ulcer of great toe: (2) Cellulitis of leg, right: (3) URI (upper respiratory infection): (4) Tachycardia: (5) DM type 2 (diabetes mellitus, type 2): (6) HTN (hypertension): (7) DVT prophylaxis: 48 yo male with poorly controlled DM type II complicated by peripheral neuropathy admitted on July 20, 2018 due to ulcer on right great toe. Ulcer of great toe associated with cellulitis in the right lower foot : MRI has no osteomyelitis, Continue treat with Vanco and Rocephin for now follow up on wound culture plain film shows no osteomyelitis Upon discharge today , will discharge patient home with Keflex, his cellulitis is significant improved and resolved, the great toe ulcerations is dry, no red , patient barely use antibiotic at home, last time ion antibiotic was Keflex, which was 8 months ago ,therefore I will give Keflex for 10 days upon discharge , PCP please follow-up in the final culture results I have requested podiatry consult and to be seen in the next 2-3 days, advised patient to keep appointment with podiatry Is extensive discussion with patient of the importance of blood glucose control diabetic control for healing of the wound upper respiratory infection, battling a viral URI for past few weeks Tachycardia: due to fever and infection, resolved poorly controlled type II diabetic, on Metformin and Invokana as outpatient does not follow a diet, does not check sugars, does not get regular foot exams Continue Lantus 30 units qAM while admitted, should take Lantus on discharge as well, will plan Lantus, Talked to patient again with certified adapted physical educator, need to follow-up with PCP in 7- 10 days, Uncontrolled HTN , especially patient has diabetic need to more stricter target systolic blood pressure and diastolic blood pressure at 130/70, continue Losartain, HCTZ, and at amlodipine 5 mg p.o. daily Heparin for DVT prophylaxis Total Time Total Time Spent Total Time Spent (In Minutes): 35 Total Time Includes: Examination of the Patient, Discharge Planning, Medication Reconciliation and Communication With Other Providers Discharge Plan Discharge Items Patient Disposition: Home - Self-Care Reason For Visit: RIGHT FOOT ULCER Discharge Diagnosis: Ulcer of great toe: Cellulitis of leg, right Discharge Goals: Decrease discomfort, Diagnostic testing and Improve disease control Activity: Resume your previous activity Non-emergency contact: Primary Care Provider and Specialist Call non-emergency contact if: you have any medication questions Follow-up/Referrals: [facility] [place] [facility] [Outside] - 07/26/18 9:00 am (Please, follow up at [facility] on WednesdayJuly 26 at 9:00 am. *This clinic is located at [address] in [place]. The phone number is [phone].) Alma Forrester, [Primary Care Provider] - 07/28/18 9:20 am (Please, follow up with Dr. Forrester on July 28 at 9:20 am. *If you need to change this appointment, call her office at [phone].) Diet: Carb Consistent or DM2 Addtl Provider Instructions: You have ulcer of great toe, and need to keep appointment with podiatry which we requested already You have cellulitis of leg, right: You need to continue Keflex for total 10 days Uncontrolled DM type 2 we started Lantus for you, You have accelerated hypertension we will add new medicine is a Norvasc you need to follow up with your primary care physician in 1 week, - take medication as instructed, never overdose or any misuse, or take with alcohol, because misuse of medicine may cause organ damage or , call me , or your primary care physician if have questions of discharge medicaitons. - call your primary care physician, or go to local emergency room if has any fever/chill, chest pain, shortness of breathing, nausea/vomiting/abdominal pain , facial droop/slurry speech/local weakness, or if has any questions. - fall precaution - diet as instructed - you need to follow up with your subspecialist, such as podiatry Rn please print out the certified adapted physical educator's discharge instruction as well Prescriptions: New amlodipine [Norvasc] 5 mg Tablet 5 mg PO DAILY 30 Days Qty: 30 RF: 0 insulin glargine [Lantus Solostar U-100 Insulin] 100 unit/mL (3 mL) Insulin Pen 30 unit SC QAM 30 Days Qty: 9 RF: 0 cephalexin [Keflex] 500 mg capsule 500 mg PO Q6H 10 Days Qty: 40 RF: 0 Continue sertraline 100 mg tablet 200 mg PO QPM RF: 0 trazodone 100 mg tablet 100 mg PO HS PRN (Reason: Sleep) RF: 0 metformin 1,000 mg tablet 2,000 mg PO QPM RF: 0 hydrochlorothiazide 25 mg tablet 25 mg PO QPM RF: 0 losartan 100 mg tablet 100 mg PO QPM RF: 0 fexofenadine-pseudoephedrine [Janee-D 12 Hour] 60-120 mg Tablet Extended Release 12 Hr 1 tab PO Q12H PRN (Reason: Cold Symptoms) RF: 0 canagliflozin 100 mg tablet 100 mg PO QPM RF: 0 Discontinued sulfamethoxazole-trimethoprim 800-160 mg tablet 1 tab PO BID RF: 0 Stand-Alone Forms: [facility], Op[facility]id Pain Management Discharge Orders: Discharge Order (Routine); Ordered 07/22/18 Ordered By: Suraj Acosta Admission Data Admit Date/Time: 07/20/18 16:23 Attending Provider: Suraj Acosta Admit Provider: Justen Hawk Primary Care Provider: Alma Forrester Other Providers: Justen Hawk Service: Surgical Services Other Interventions: Discharge Summary Assessment (RN) Last Done: 07/22/18 17:09
== END 2018-07-22 19:23 | disposition home or self-care (01) ==
LOC: ED 14:09 → SUATTDRO 16:23 → 3W 16:23